=== PATIENT | male | born 1960 | race Caucasian/White ===

== ENCOUNTER 2021-02-07 13:05 | Emergency (ER) | payer OTHER ==
[~2021-02-07] VITALS: Ht 180.3 cm; Wt 116.7 kg
[2021-02-07 13:52] LABS: BASO # 0.1 10^3/uL (0.0-0.2); EOS # 0.4 10^3/uL (0.0-0.5); EOS % 3.5 % (0.0-3.0); HEMATOCRIT 45.3 % (42.0-52.0); HEMOGLOBIN 14.9 g/dl (13.5-17.5); LYMPH # 2.2 10^3/uL (1.5-5.0); LYMPH % 20.7 % (24.0-44.0); MEAN CORPUSCULAR HEMOGLOBIN 31.8 pg (27.0-33.0); MEAN CORPUSCULAR HGB CONC 32.9 g/dl (32.0-36.5); MEAN CORPUSCULAR VOLUME 96.8 fl (80.0-96.0); MONO # 0.7 10^3/uL (0.0-0.8); MONO % 6.2 % (2.0-8.0); NEUTROPHILS # 7.2 10^3/uL (1.5-8.5); PLATELET COUNT, AUTOMATED 354 10^3/uL (150-450); RED BLOOD COUNT 4.68 10^6/uL (4.30-6.10); WHITE BLOOD COUNT 10.5 10^3/uL (4.0-10.0)
[2021-02-07 14:27] LABS: ALBUMIN 2.8 GM/DL (3.2-5.2); BILIRUBIN,DIRECT 0.2 MG/DL (0.0-0.2); BILIRUBIN,TOTAL 0.5 MG/DL (0.2-1.0); TOTAL PROTEIN 6.3 GM/DL (6.4-8.2)
[2021-02-07] MEDS ORDERED: LASI20TA3 PO (14:47)
[2021-02-07] MEDS ORDERED: PRED20TA PO (14:47)
[2021-02-07 14:58] VITALS: BP 121/79
== END 2021-02-07 15:02 | disposition home or self-care (01) ==
LOC: M ED 13:05
DX: L30.9 Dermatitis, unspecified (principal); L40.0 Psoriasis vulgaris; R60.9 Edema, unspecified

== ENCOUNTER → 2024-04-29 | Outpatient (CLI) | payer OTHER ==
[~2024-04-29] MED LIST: LASI20TA3 PO; PRED20TA PO
== END ==
LOC: M RAD 13:20
PROVIDERS: ATTEND Registered Nurse
DX: Z87.891 Personal history of nicotine dependence (principal)

== ENCOUNTER → 2025-02-10 | Outpatient (CLI) | payer OTHER | LOC: M CARPUL 13:58 | PROVIDERS: ATTEND Internal Medicine Cardiovascular Disease | DX: R06.02 Shortness of breath (principal); I51.7 Cardiomegaly; R60.0 Localized edema ==

== ENCOUNTER → 2025-02-28 | Outpatient (CLI) | payer OTHER ==
[2025-02-28 13:57] LABS: CALCIUM LEVEL 8.9 MG/DL (8.3-10.6); CARBON DIOXIDE LEVEL 28.0 MMOL/L (20-31); CHLORIDE LEVEL 102.0 MMOL/L (98-107); CREATININE FOR GFR 0.96 MG/DL (0.70-1.30); GLOMERULAR FILTRATION RATE 89.4 (>49); POTASSIUM SERUM 4.5 MMOL/L (3.5-5.1); SODIUM LEVEL 138.0 MMOL/L (136-145)
== END ==
LOC: M LAB 12:47
PROVIDERS: ATTEND Physician Assistant
DX: I50.22 Chronic systolic (congestive) heart failure (principal)